=== PATIENT | male | born 1960 | race Caucasian/White ===

== ENCOUNTER → 2017-08-15 | Outpatient (CLI) | payer MEDICAID, SELFPAY | PROVIDERS: PCP Family Medicine; Visit Provider Family Medicine | DX: M51.9 Unspecified thoracic, thoracolumbar and lumbosacral intervertebral disc disorder (principal); M54.32 Sciatica, left side | CPT/HCPCS: 72148; 76376 ==

== ENCOUNTER 2017-09-12 15:22 | Emergency (ER) | payer MEDICAID, SELFPAY ==
[2017-09-12 15:24] VITALS: BP 161/95; PULSE 94; RESP 14; TEMP 37; O2SAT 98; BMI 50.1
[2017-09-12 16:09] LABS: Microscopic, Urine URINE MICROSCOPIC (MICROSCOPIC)
[2017-09-12 16:13] LABS: Appearance,Urine CLEAR (Clear); Bilirubin,Urine Negative (Negative); Blood, Urine SMALL (Negative); Color,Urine YELLOW (Yellow); Glucose,Urine (UA) Negative (Negative); Ketones,Urine Negative (Negative); Leukocyte Esterase,Urine Negative (Negative); Nitrate,Urine Negative (Negative); Protein,Urine Negative (Negative); Urobilinogen,Urine 0.2 EU/dl (0.2)
--- NOTE | 2017-09-12 16:24 | CT_ITS ---
CT abdomen pelvis wo con CLINICAL INDICATION: ITS.REASON: LEFT FLANK PAIN ORDERING PHYSICIAN: Trung Diez MD PATIENT AGE: 56 years COMPARISON: 09-27-16 TECHNIQUE: Axial images obtained with sagittal and coronal reformats. PROCEDURE: Oral Contrast: None IV Contrast: None . FINDINGS: Images are obtained from the mid upper chest through the abdomen and pelvis. There are several noncalcified pulmonary nodules including a 4 mm nodule right upper lobe, 2 mm nodule right upper lobe, 4 mm nodule right upper lobe inferiorly, 4 mm nodule in the fissural region, 5 mm nodule right lower lobe. There are small nodes in the right hilum. Diffuse fatty liver. No definite focal liver lesions. The gallbladder, spleen and adrenal glands are unremarkable. There is fatty infiltration of the pancreas. There is a 3 to 4 mm stone at the left ureterovesical junction causing mild left hydroureteronephrosis with minimal stranding of the left periureteral fat. A 9 mm stone is present in the lower pole the left kidney. Part of the left lateral abdominal wall is not included. No evidence of appendicitis, intestinal obstruction, or diverticulitis. IMPRESSION: 1. 3 to 4 mm left ureterovesical junction stone with mild obstructive uropathy 2. 9 mm stone in the lower pole left kidney. 3. Several noncalcified pulmonary nodules the largest at 5 mm. Consider 6 month follow-up of the chest
--- NOTE | 2017-09-12 16:24 | PC.NURSE ---
CT order had to be cancelled and re entered before radiology could see it.
[2017-09-12 16:31] LABS: Basophils # 0.1 K/mm3 (0-0.2); Basophils % 0.5 % (0.1-2.0); Eosinophils # 0.2 K/mm3 (0.0-0.4); Eosinophils % 1.2 % (0.1-12.0); Hematocrit 46.4 % (42.0-52.0); Hemoglobin 15.3 g/dL (14.1-18.0); Lymphocytes # 1.7 K/mm3 (0.7-4.5); Lymphocytes % 13.4 K/mm3 (10-50); Mean Corpuscular Hemoglobin 29.5 pg (27.0-31.2); Mean Corpuscular Volume 89.4 fl (80-94); Mean Platelet Volume 6.8 fl (7.4-10.4); Monocytes # 0.7 K/mm3 (0.1-1.0); Monocytes % 5.1 % (1.7-9.3); Neutrophils # 10.1 K/mm3 (1.8-7.8); Neutrophils % 79.8 % (37.0-80.0); Platelet Count 337 K/mm3 (142-424); Red Blood Count 5.19 M/mm3 (4.60-6.20); Red Cell Distribution Width 13.3 % (11.5-17.5); White Blood Count 12.6 K/mm3 (4.8-10.8)
[2017-09-12 16:45] LABS: Alanine Aminotransferase 35 U/L (12-78); Albumin Level 3.7 gm/dL (3.4-5.0); Albumin/Globulin Ratio 0.9 (1.1-1.8); Alkaline Phosphatase 64 U/L (46-116); Anion Gap 13.6 mEq/L (5-15); Aspartate Amino Transferase 18 U/L (15-37); Bilirubin,Total 0.5 mg/dL (0.2-1.0); Blood Urea Nitrogen 17 mg/dL (7-18); Calcium 9.2 mg/dL (8.5-10.1); Carbon Dioxide 26 mmol/L (21.0-32.0); Chloride 99 mmol/L (98-107); Creatinine Clearance Estimated 105 mL/min (0-300); Creatinine,Serum 0.76 mg/dL (0.70-1.30); Estimated Glomerular Filt Rate 106 ml/min (>60); GFR (African American) 128 ML/MIN (>60); Globulin 4.2 gm/dl (1.3-3.2); Glucose 134 mg/dL (74-106); Potassium 3.6 mmoL/L (3.5-5.1); Sodium 135 mmol/L (136-145); Total Protein,Serum 7.9 gm/dL (6.4-8.2)
[2017-09-12 16:55] LABS: Mucus,Urine 1+ /lpf
--- NOTE | 2017-09-12 17:45 | HMH.EDGENADL ---
ED Disposition Clinical Impression: Calculus of left kidney, Lung nodule seen on imaging study Hematuria Qualifiers: Hematuria type: unspecified type Qualified Code(s): R31.9 - Hematuria, unspecified Disposition: Home, Self-Care Condition on Discharge: Good Instructions: Kidney Stones -- Adult Additional Instructions: Follow-up with Dr. Garcia regarding your kidney stone, also follow-up with your PCP regarding your lung nodule in order to arrange for a follow-up CT scan of your chest within 6 months in order to rule out a possible lung malignancy. Appeal of CT scan given to you in the emergency room today. Prescriptions: Etodolac [Lodine 400mg Tab] 400 mg PO BID PRN #14 tab PRN Reason: Moderate Pain Referrals: John Sotelo MD [Primary Care Provider] - Time of Disposition: 17:48 - Critical Care Critical Care Time: No Attestation: On 09/12/17, the high probability of a clinically significant, sudden or life threatening deterioration of the following system(s) required my full and direct attention, intervention and personal management. The time I documented below is in addition to time spent performing reported procedures but includes the following listed in this critical care notation. Medical Decision Making - Medical Records Medical records reviewed: Yes: I reviewed the patient's medical records. Vital Signs: 09/12/17 15:24 09/12/17 17:57 Temperature 98.6 F 98.6 F Temperature Source Oral Oral Pulse Rate 90 Pulse Rate [Right Brachial] 94 H Respiratory Rate 14 16 Blood Pressure 189/100 Blood Pressure [Right Arm] 161/95 Blood Pressure Mean [Right Arm] 117 Blood Pressure Source Automatic Cuff Blood Pressure Source [Right Arm] Automatic Cuff Blood Pressure Position Sitting Blood Pressure Position [Right Arm] Sitting 02 Sat by Pulse Oximetry 98 Oxygen Delivery Method Room Air Room Air - Lab Data Lab results reviewed: Yes: I reviewed the patient's lab results. Lab Results 09/12/17 16:00: Urine Color Yellow, Urine Appearance Clear, Urine pH 6.0, Ur Specific [place] 1.020, Urine Protein Negative, Urine Glucose (UA) Negative, Urine Ketones Negative, Urine Blood Small, Urine Nitrate Negative, Urine Bilirubin Negative, Urine Urobilinogen 0.2, Ur Leukocyte Esterase Negative, Urine RBC 5-10, Urine WBC None, Ur Squamous Epith Cells None, Urine Bacteria None, Urine Mucus 1+ 09/12/17 16:20: WBC 12.6 H, RBC 5.19, Hgb 15.3, Hct 46.4, MCV 89.4, MCH 29.5, MCHC 33.0, RDW 13.3, Plt Count 337, MPV 6.8 L, Neut % (Auto) 79.8, Lymph % (Auto) 13.4, [place] % (Auto) 5.1, Eos % (Auto) 1.2, Baso % (Auto) 0.5, Neut # (Auto) 10.1 H, Lymph # (Auto) 1.7, [place] # (Auto) 0.7, Eos # (Auto) 0.2, Baso # (Auto) 0.1 09/12/17 16:20: Sodium 135 L, Potassium 3.6, Chloride 99, Carbon Dioxide 26, Anion Gap 13.6, BUN 17, Creatinine 0.76, Estimated Creat Clear 105, Estimated GFR 106, Est GFR ( Amer) 128, Glucose 134 H, Calcium 9.2, Total Bilirubin 0.5, AST 18, ALT 35, Alkaline Phosphatase 64, Total Protein 7.9, Albumin 3.7, Globulin 4.2 H, Albumin/Globulin Ratio 0.9 L Result diagrams: 09/12/17 16:20 09/12/17 16:20 Orders (Tests/Meds): ED MEDICATIONS Discontinued Medications Generic Name Dose Route Start Last Admin Trade Name Freq PRN Reason Stop Dose Admin Ketorolac Tromethamine 30 mg 09/12/17 15:41 09/12/17 17:59 Toradol 30mg/Ml Vial IV 09/12/17 15:42 Not Given ONCE ONE Ondansetron HCl 4 mg 09/12/17 15:41 09/12/17 17:59 Zofran 4mg/2ml Vial IV 09/12/17 15:42 Not Given ONCE ONE ORDERS Category Date Time Status CT abdomen/pelvis request [CT Request abd/pelvis] Exams 09/12/17 16:23 Ordered Stat - CT Data CT Scan: Abdomen, Pelvis Time Received: 17:[address] Reviewed: Yes: I have viewed the radiologist's interpretation Findings Narrative: left UVJ with mild hydronephrosis / stone, - Rafael Inquiry Pt receiving controlled substance: No - Reevaluation(s) Time: 17:3
--- NOTE | 2017-09-12 17:49 | ED_ITS ---
ED Disposition Clinical Impression: Calculus of left kidney, Lung nodule seen on imaging study Hematuria Qualifiers: Hematuria type: unspecified type Qualified Code(s): R31.9 - Hematuria, unspecified Disposition: Home, Self-Care Condition on Discharge: Good Instructions: Kidney Stones -- Adult Additional Instructions: Follow-up with Dr. Garcia regarding your kidney stone, also follow-up with your PCP regarding your lung nodule in order to arrange for a follow-up CT scan of your chest within 6 months in order to rule out a possible lung malignancy. Appeal of CT scan given to you in the emergency room today. Prescriptions: Etodolac [Lodine 400mg Tab] 400 mg PO BID PRN #14 tab PRN Reason: Moderate Pain Referrals: John Sotelo MD [Primary Care Provider] - Time of Disposition: 17:48 - Critical Care Critical Care Time: No Attestation: On 09/12/17, the high probability of a clinically significant, sudden or life threatening deterioration of the following system(s) required my full and direct attention, intervention and personal management. The time I documented below is in addition to time spent performing reported procedures but includes the following listed in this critical care notation. Medical Decision Making - Medical Records Medical records reviewed: Yes: I reviewed the patient's medical records. Vital Signs: 09/12/17 15:24 09/12/17 17:57 Temperature 98.6 F 98.6 F Temperature Source Oral Oral Pulse Rate 90 Pulse Rate [Right Brachial] 94 H Respiratory Rate 14 16 Blood Pressure 189/100 Blood Pressure [Right Arm] 161/95 Blood Pressure Mean [Right Arm] 117 Blood Pressure Source Automatic Cuff Blood Pressure Source [Right Arm] Automatic Cuff Blood Pressure Position Sitting Blood Pressure Position [Right Arm] Sitting 02 Sat by Pulse Oximetry 98 Oxygen Delivery Method Room Air Room Air - Lab Data Lab results reviewed: Yes: I reviewed the patient's lab results. Lab Results 09/12/17 16:00: Urine Color Yellow, Urine Appearance Clear, Urine pH 6.0, Ur Specific [place] 1.020, Urine Protein Negative, Urine Glucose (UA) Negative, Urine Ketones Negative, Urine Blood Small, Urine Nitrate Negative, Urine Bilirubin Negative, Urine Urobilinogen 0.2, Ur Leukocyte Esterase Negative, Urine RBC 5-10, Urine WBC None, Ur Squamous Epith Cells None, Urine Bacteria None, Urine Mucus 1+ 09/12/17 16:20: WBC 12.6 H, RBC 5.19, Hgb 15.3, Hct 46.4, MCV 89.4, MCH 29.5, MCHC 33.0, RDW 13.3, Plt Count 337, MPV 6.8 L, Neut % (Auto) 79.8, Lymph % (Auto ) 13.4, [place] % (Auto) 5.1, Eos % (Auto) 1.2, Baso % (Auto) 0.5, Neut # (Auto) 10.1 H, Lymph # (Auto) 1.7, [place] # (Auto) 0.7, Eos # (Auto) 0.2, Baso # (Auto) 0.1 09/12/17 16:20: Sodium 135 L, Potassium 3.6, Chloride 99, Carbon Dioxide 26, Anion Gap 13.6, BUN 17, Creatinine 0.76, Estimated Creat Clear 105, Estimated GFR 106, Est GFR ( Amer) 128, Glucose 134 H, Calcium 9.2, Total Bilirubin 0.5, AST 18, ALT 35, Alkaline Phosphatase 64, Total Protein 7.9, Albumin 3.7, Globulin 4.2 H, Albumin/Globulin Ratio 0.9 L Result diagrams: 09/12/17 16:20 09/12/17 16:20 Orders (Tests/Meds): ED MEDICATIONS Discontinued Medications Generic Name Dose Route Start Last Admin Trade Name Freq PRN Reason Stop Dose Admin Ketorolac Tromethamine 30 mg 09/12/17 15:41 09/12/17 17:59 Toradol 30mg/Ml Vial IV 09/12/17 15:42 Not Given ONC
[2017-09-12 17:57] VITALS: BP 189/100; PULSE 90; RESP 16; TEMP 37; O2SAT 97
== END 2017-09-12 18:00 | disposition home or self-care (01) ==
PROVIDERS: Emergency Provider Emergency Medicine; Family Provider Family Medicine; PCP Family Medicine
DX: N20.0 Calculus of kidney (principal); R91.1 Solitary pulmonary nodule; R31.9 Hematuria, unspecified; Z87.442 Personal history of urinary calculi; Z79.899 Other long term (current) drug therapy
CPT/HCPCS: 74176; 80053; 81001; 85025; 99283

== ENCOUNTER → 2018-11-14 10:30 | Outpatient (CLI) | payer MEDICAID, SELFPAY ==
--- NOTE | 2018-11-14 10:34 | CI_ITS ---
Cerebrovascular Exam Indications: 780.4 Dizziness and giddiness. IMPRESSIONS 1. The bilateral vertebral arteries are patent with normal antegrade flow. 2. Study suggests 20-49% stenosis involving the right internal carotid artery and the left internal carotid artery, lower end of scale. Carotid duplex study. Complete study and Doppler flow study including spectral analysis, color and roland scale imaging. Height: Height: 172.7cm. Height: 68in. Weight: Weight: 152.4kg. Weight: 335.3lb. Body mass index: BMI: 51.1kg/m^2. Body surface area: BSA: 2.79m^2. Location: Vascular laboratory. Patient status: Outpatient. Tables: Arterial flow: + +--------+--------+ Location V sys V ed + +--------+--------+ Right CCA - proximal 99cm/s 22cm/s + +--------+--------+ Right CCA - distal 83.3cm/s 15.7cm/s + +--------+--------+ Right ECA 125cm/s -------- + +--------+--------+ Right ICA - proximal 86.4cm/s 18.1cm/s + +--------+--------+ Right ICA - mid 87.2cm/s 24.4cm/s + +--------+--------+ Right ICA - distal 70.7cm/s 22cm/s + +--------+--------+ Right vertebral 28.2cm/s -------- + +--------+--------+ Left CCA - proximal 87.7cm/s 14.9cm/s + +--------+--------+ Left CCA - distal 85.5cm/s 19.9cm/s + +--------+--------+ Left ECA 118cm/s -------- + +--------+--------+ Left ICA - proximal 99.7cm/s 27cm/s + +--------+--------+ Left ICA - mid 98.2cm/s 32.4cm/s + +--------+--------+ Left ICA - distal 107cm/s 32.9cm/s + +--------+--------+ Left vertebral 30.4cm/s -------- + +--------+--------+ Velocity ratios: + + + + + + Right, V sys Right, V ed Left, V sys Left, V ed + + + + + + Max ICA/dist CCA 1.05 1.55 1.25 1.65 + + + + + + (Report amended ) Electronically signed by: Gonzalez Castañeda [id number]
== END ==
PROVIDERS: PCP Family Medicine; Visit Provider Family Medicine
DX: R42 Dizziness and giddiness (principal)
CPT/HCPCS: 93880

== ENCOUNTER → 2018-12-09 08:43 | Outpatient (POV) | payer MEDICAID, SELFPAY | PROVIDERS: Visit Provider Otolaryngology | DX: Z00.00 Encounter for general adult medical examination without abnormal findings (principal) ==

== ENCOUNTER → 2019-03-09 10:26 | Outpatient (CLI) | payer MEDICAID, SELFPAY ==
--- NOTE | 2019-03-09 10:39 | MR_ITS ---
MR head/brain wo con HISTORY: Dizziness, weakness, ringing in ears ITS.REASON: DIZZINESS, TRAUMATIC INJURY OF HEAD ORDERING PHYSICIAN: John Sotelo MD PATIENT AGE: 58 years Comparison: None TECHNIQUE: Standard multiplanar multiecho sequences are performed without contrast. FINDINGS: No midline shift, mass effect, intracranial hemorrhage, or hydrocephalus is evident. There is mild generalized atrophy. There are periventricular and subcortical T2 white matter hyperintensities consistent with ischemic gliotic change from microvascular disease. No acute infarct evident. The cerebellopontine angles, cerebellum, and brainstem have an unremarkable appearance. There is a small area of increased FLAIR and T2 signal involving the medial aspect of the left petrous bone measuring 8 x 4 mm and may represent a small cholesterol granuloma as an incidental finding. The pituitary, optic chiasm, corpus callosum, and craniocervical junction have an unremarkable appearance. No mastoid effusion or sinus air-fluid level. IMPRESSION: 1. No acute intracranial finding. 2. Atrophy with mild periventricular ischemic gliotic change. 3. Suspect a small cholesterol granuloma as an incidental finding in the left petrous bone
== END ==
PROVIDERS: PCP Family Medicine; Visit Provider Family Medicine
DX: R42 Dizziness and giddiness (principal); S09.90XA Unspecified injury of head, initial encounter
CPT/HCPCS: 70551

== ENCOUNTER → 2019-08-18 09:58 | Outpatient (CLI) | payer MEDICARE, OTHER, SELFPAY ==
--- NOTE | 2019-08-18 10:06 | XR_ITS ---
PROCEDURE: XR FOOT LT MIN 3V CLINICAL INDICATION: LT FOOT PAIN COMPARISON: FTL3 FOOT-LT-3 VIEWS from 12/21/2014 FTL3 FOOT-LT-3 VIEWS from 01/25/2015 FINDINGS: No fracture or dislocation. No lytic or blastic change. There is normal mineralization. The joint spaces are well-preserved. No significant degenerative/arthritic changes. No erosive changes evident. Other findings:None. IMPRESSION: No acute findings. Dictated by: Jalil Reyes 08/18/2019 12:52 Electronically signed by Jalil Reyes in [place] 08/18/2019 12:52
== END ==
PROVIDERS: PCP Family Medicine; Visit Provider Family Medicine
DX: M79.672 Pain in left foot (principal)
CPT/HCPCS: 73630

== ENCOUNTER → 2020-04-26 12:57 | Outpatient (CLI) | payer MEDICARE, MEDICAID, SELFPAY | PROVIDERS: PCP Family Medicine; Visit Provider Family Medicine | DX: G47.33 Obstructive sleep apnea (adult) (pediatric) (principal); I10 Essential (primary) hypertension ==

== ENCOUNTER → 2020-05-31 08:15 | Outpatient (CLI) | payer MEDICARE, MEDICAID, SELFPAY ==
[2020-05-31 09:39] LABS: Coronavirus 19 IgG Antibody Negative (Negative); Coronavirus 19 IgM Antibody Negative (Negative)
== END ==
PROVIDERS: Visit Provider Family Medicine
DX: Z01.89 Encounter for other specified special examinations (principal); G47.33 Obstructive sleep apnea (adult) (pediatric); I10 Essential (primary) hypertension
CPT/HCPCS: 36415; 86328

== ENCOUNTER → 2020-06-01 20:02 | Outpatient (CLI) | payer MEDICARE, MEDICAID, SELFPAY | PROVIDERS: PCP Family Medicine; Visit Provider Family Medicine | DX: Z01.89 Encounter for other specified special examinations (principal); G47.33 Obstructive sleep apnea (adult) (pediatric); I10 Essential (primary) hypertension | CPT/HCPCS: 95811 ==

== ENCOUNTER 2020-08-11 10:59 | Emergency (ER) | payer MEDICARE, MEDICAID, SELFPAY ==
[2020-08-11 11:57] VITALS: BP 161/91; PULSE 83; RESP 19; TEMP 36.9; O2SAT 98; BMI 47.3
--- NOTE | 2020-08-11 12:07 | HMH.EDUTC ---
[place] Disposition Clinical Impression: Hematuria Qualifiers: Hematuria type: unspecified type Qualified Code(s): R31.9 - Hematuria, unspecified Disposition: Home, Self-Care Condition on Discharge: Good Instructions: Kidney Stones -- Adult, DI for Hematuria Additional Instructions: Go straight to Dr Weber office after leaving the [facility] FOllow up as needed Straight to ER If any worsening of pain Referrals: John Sotelo MD [Primary Care Provider] - As needed Floyd Sigala MD [Staff Physician] - As needed (Go straight to Dr Weber office) Time of Disposition: 13:14 Medical Decision Making - Rafael Inquiry Pt receiving controlled substance: No Rafael was queried for this patient: No Vital Signs: 08/11/20 11:57 08/11/20 13:14 Temperature 98.4 F 98.4 F Temperature Source Oral Pulse Rate 83 Pulse Rate [Left Brachial] 83 Respiratory Rate 19 19 Blood Pressure 161/91 H Blood Pressure [Left Arm] 161/91 H Blood Pressure Mean [Left Arm] 114 Blood Pressure Source [Left Arm] Automatic Cuff Blood Pressure Position [Left Arm] Sitting 02 Sat by Pulse Oximetry 98 Oxygen Delivery Method Room Air - Lab Data Lab results reviewed: Yes: I reviewed the patient's lab results. Lab Results 08/11/20 11:59: Urine Color Dark yellow, Urine Appearance Clear, Urine pH 5.5, Ur Specific [place] 1.025, Urine Protein 1+, Urine Glucose (UA) Negative, Urine Ketones Trace, Urine Blood 3+, Urine Nitrate Negative, Urine Bilirubin 1+ A, Urine Urobilinogen 1, Ur Leukocyte Esterase Trace 08/11/20 12:40: BUN 21 H, Creatinine 1.40 H, Estimated Creat Clear 59, Estimated GFR 52 L, Est GFR ( Amer) 63 Result diagrams: 08/11/20 12:40 Orders (Tests/Meds): ORDERS Category Date Time Status Urine Culture Stat Micro 08/11/20 12:00 Received - Physician Consults Physician Consulted: Zakiya Time: 13:10 Reason -: Urology Eval/Care Comment/Response: Spoke with Urology Clinic and informed them of patient complaints and lab findings and they advised to have patient come straight to the office for further evaluation and examination Medical Decision Narrative: Spoke with Dr Singletary about this patient for possible transfer to the ED She advised to get BUN/Creatine and since patient has had previous CT and history of stones if labs are ok Give injection of Torodol and dc home to follow up with Urology Patient refused Torodol injection for pain Spoke with Dr Weber office and informed them of lab findings and they advised to DC patient from the [facility] and have him come straight to the Clinic for further treatment and evaluation Patient verbalized understanding [place] HPI - General Stated complaint: left side and back pain Time Seen by Provider: 08/11/20 12:09 Mode of Arrival: Ambulatory Source of Information: Patient Limitations: No Limitations Description of Symptoms (Recalled from Triage Doc. by RN): PATIENT C/O BACK PAIN SINCE SATURDAY; HE BELIEVES HE HAS A KIDNEY STONE HEENT Symptoms (Recalled from RN notes): No Resp Symptoms (Recalled from RN notes): No Skin Symptoms (Recalled from RN notes): No MS Symptoms (Recalled from RN notes): Yes Functional Status (Recalled from RN notes): WNL - History of Present Illness Provider Complaint: Patient state that he has been having left flank pain on and off since Saturday States that he has a history of kidney stones and thinks he may be having one States that he has been having pain in flank area and at times will take his breath State that pain has continued to get worse and now is moving around his side and notice he had some blood in his urine State that he took some Motrin and it helped with pain - Related Data Home Medications Medication Instructions Recorded Confirmed benazepril 20 mg tablet 20 mg PO DAILY tab 11/05/17 08/11/20 clonazepam 0.5 mg tablet 0.5 mg PO QHS 11/05/17 08/11/20 hydrochlorothiazide 25 mg tablet 12.5 mg PO QAM 11/05/17 08/11/20 imipramine HCl 50 mg tablet 50 mg PO QHS tab
[2020-08-11 12:17] LABS: Apearance,Urine Clear (Clear); Color,Urine Dark Yellow (Yellow); PH,Urine 5.5 (5.0-8.5); Protein,Urine 1+ (Negative); Specific Gravity, Urine 1.025 (1.005-1.030)
[2020-08-11 12:18] LABS: Blood, Urine 3+ (Negative); Glucose,Urine (UA) Negative (Negative); Ketones,Urine TRACE (Negative)
[2020-08-11 12:19] LABS: Bilirubin,Urine 1+ (Negative); UTC Leukocyte Esterase,Urine Trace (Negative); UTC Nitrate,Urine Negative (Negative); Urobilinogen,Urine 1 EU/dl (0.2)
[2020-08-11 12:57] LABS: Blood Urea Nitrogen 21 mg/dl (9-20); Creatinine Clearance Estimated 59 mL/min (50-200); Estimated Glomerular Filt Rate 52 ml/min (>60); GFR (African American) 63 ML/MIN (>60)
[2020-08-11 13:14] VITALS: BP 161/91; PULSE 83; RESP 19; TEMP 36.9; O2SAT 98
== END 2020-08-11 13:15 | disposition home or self-care (01) ==
PROVIDERS: Emergency Provider Nurse Practitioner; PCP Family Medicine
DX: R31.9 Hematuria, unspecified (principal); Z87.442 Personal history of urinary calculi; M54.5 Low back pain; I10 Essential (primary) hypertension; E78.5 Hyperlipidemia, unspecified; Z88.2 Allergy status to sulfonamides
CPT/HCPCS: G0463; 74018; 81003; 82565; 84520; 87086; 99202

== ENCOUNTER → 2020-08-11 13:41 | Outpatient (CLI) | payer MEDICARE, MEDICAID, SELFPAY ==
--- NOTE | 2020-08-11 13:45 | XR_ITS ---
PROCEDURE: XR KUB CLINICAL INDICATION: kidney stones COMPARISON: CT ABDPELWO CT abdomen pelvis wo con from 09/12/2017 FINDINGS: A 4 mm stone is present in the lower pole of the left kidney. Calcifications are also present in the pelvis and could represent distal ureteral calculi. IMPRESSION: Left nephrolithiasis with possible ureterolithiasis. Calcific densities are present along the pelvic region on the left measuring to 7 mm possibly related to ureteral calculi. Dictated by: Gonzalez Castañeda MD 08/11/2020 14:03 Gonzalez Castañeda MD in [place] 08/11/2020 14:03
== END ==
PROVIDERS: PCP Family Medicine; Visit Provider Urology
DX: N20.0 Calculus of kidney (principal)
CPT/HCPCS: 74018; 81003; 82565; 84520; 87086

== ENCOUNTER → 2020-12-06 09:23 | Outpatient (CLI) | payer MEDICARE, MEDICAID, SELFPAY | PROVIDERS: PCP Family Medicine; Visit Provider Family Medicine | DX: R00.2 Palpitations (principal) | CPT/HCPCS: 93225; 93226 ==

== ENCOUNTER → 2021-05-19 09:53 | Outpatient (CLI) | payer MEDICARE, MEDICAID, SELFPAY | PROVIDERS: Visit Provider Internal Medicine Gastroenterology | DX: Z01.812 Encounter for preprocedural laboratory examination (principal); Z11.52 Encounter for screening for COVID-19; Z13.810 Encounter for screening for upper gastrointestinal disorder | CPT/HCPCS: C9803; U0003; U0005 ==

== ENCOUNTER 2021-09-08 11:15 | Emergency (ER) | payer MEDICARE, MEDICAID, SELFPAY ==
[2021-09-08 12:39] VITALS: BP 175/83; PULSE 82; RESP 18; TEMP 37.1; O2SAT 98; BMI 46.0
[2021-09-08 12:43] LABS: UTC Strep Screen (Rapid) Positive (Negative)
[2021-09-08 12:44] LABS: UTC Influenza A Antigen Negative (Negative); UTC Influenza B Antigen Negative (Negative)
--- NOTE | 2021-09-08 13:09 | HMH.EDUTC ---
[facility] [place] Disposition Clinical Impression: Strep throat, COVID-19 Disposition: Home, Self-Care Condition on Discharge: Good Instructions: Strep Throat, DI for Sinusitis, DI for Strep Throat Additional Instructions: Drink plenty of fluids. Take tylenol or ibuprofen for pain or fever. Take the medications as directed. Follow up with your regular doctor. GO TO THE ER FOR ANY WORSENING SYMPTOMS Throw your tooth brush away and get a new one. Prescriptions: Amoxicillin/Potassium Clav [Augmentin 875-125 Tablet] 1 tab PO Q12H 10 Days #20 tab Transmission Status: Received by [facility] guaiFENesin [Mucinex 600mg tablet] 1 - 2 tab PO BIDP PRN #30 tab PRN Reason: Congestion Transmission Status: Received by [facility] Referrals: John Sotelo MD [Primary Care Provider] - Time of Disposition: 13:27 Medical Decision Making - Medical Records Medical records reviewed: No: I reviewed the patient's medical records. - Rafael Inquiry Pt receiving controlled substance: No Vital Signs: 09/08/21 12:39 09/08/21 13:31 Temperature 98.8 F 98.8 F Temperature Source Oral Pulse Rate 82 Pulse Rate [Left] 82 Respiratory Rate 18 18 Blood Pressure 175/83 H Blood Pressure [Right Arm] 175/83 H Blood Pressure Mean [Right Arm] 113 02 Sat by Pulse Oximetry 98 - Lab Data Lab results reviewed: Yes: I reviewed the patient's lab results. Lab Results 09/08/21 12:42: Influenza Type A Ag Negative, Influenza Type B Ag Negative 09/08/21 12:42: Strep Scn Rapid Clinic Positive A [facility] HPI - General Stated complaint: possible sinus infection Time Seen by Provider: 09/08/21 13:00 Mode of Arrival: Ambulatory Source of Information: Patient Limitations: No Limitations Description of Symptoms (Recalled from Triage Doc. by RN): pt c/o sinus pressure/drainage and a productive cough with clear-yellow sputum. HEENT Symptoms (Recalled from RN notes): Yes (sinus pressure/drainage) Resp Symptoms (Recalled from RN notes): Yes (productive cough with clear-yellow sputum) Skin Symptoms (Recalled from RN notes): No MS Symptoms (Recalled from RN notes): No Functional Status (Recalled from RN notes): wnl - History of Present Illness Provider Complaint: He states that he has had a sore throat and sinus congestion for the past 4 days. He denies fever/chills. He denies shortness of breath or chest congestion. - Related Data Home Medications Medication Instructions Recorded Confirmed benazepril 20 mg tablet 20 mg PO BID tab 11/05/17 05/18/21 clonazepam 0.5 mg tablet 0.5 mg PO QHS 11/05/17 05/18/21 imipramine HCl 50 mg tablet 50 mg PO QHS tab 11/05/17 05/18/21 Amlodipine Besylate [Amlodipine 5 mg PO DAILY 12/02/17 05/18/21 10mg Tab] Simvastatin [Zocor 40mg] 40 mg PO HS 08/11/20 05/18/21 Flecainide Acetate 100 mg PO BID 03/13/21 05/18/21 hydroCHLOROthiazide 12.5 mg PO DAILY 05/18/21 05/18/21 [Hydrochlorothiazide 12.5mg Tab] Previous Rx's Medication Instructions Recorded Amoxicillin/Potassium Clav 1 tab PO Q12H 10 Days #20 tab 09/08/21 [Augmentin 875-125 Tablet] guaiFENesin [Mucinex 600mg tablet] 1 - 2 tab PO BIDP PRN #30 tab 09/08/21 Allergies Allergy/AdvReac Type Severity Reaction Status Date / Time Sulfa (Sulfonamide Allergy Intermediate I-HIVES Verified 03/13/21 10:02 Antibiotics) ciprofloxacin [From Cipro] Allergy Unknown Verified 05/18/21 13:24 metaxalone Allergy Unknown Verified 03/13/21 10:02 - Worker's Comp Is this a Worker's Comp case?: No [facility] History - Hepatitis A Screen Drug use history?: No High risk sexual behaviors?: No History of sexually transmitted infection?: No Currently employed?: No Childcare worker?: No Do you have indoor plumbing?: Yes Do you have electricity?: Yes Attestation statement:: This patient has been screened for Hepatitis A risk factors. I have reviewed the patient's past medical history: Yes Medical History: Reports:: [place]
[2021-09-08 13:31] VITALS: BP 175/83; PULSE 82; RESP 18; TEMP 37.1
== END 2021-09-08 13:39 | disposition home or self-care (01) ==
LOC: UTC 11:17
PROVIDERS: Emergency Provider Nurse Practitioner Family; PCP Family Medicine
DX: J02.0 Streptococcal pharyngitis (principal); U07.1 COVID-19; F17.210 Nicotine dependence, cigarettes, uncomplicated; I10 Essential (primary) hypertension; Z88.2 Allergy status to sulfonamides
CPT/HCPCS: G0463; 87804; 87880; 99203; C9803; U0003; U0005

== ENCOUNTER → 2022-03-27 12:53 | Outpatient (CLI) | payer MEDICARE, MEDICAID, SELFPAY ==
--- NOTE | 2022-03-27 12:58 | XR_ITS ---
FINAL REPORT CLINICAL HISTORY: EDEMA FINDINGS: Two views of the chest were obtained. The heart size and pulmonary vascularity are within normal limits. The mediastinum is normal. No acute pulmonary abnormality is identified. There is no pneumothorax. The bony thorax is intact. IMPRESSION: No active cardiopulmonary disease. Reviewed, Interpreted and Dictated by Carmelo Lange III, MD Transcribed by Brian Parks Authenticated and [facility]
== END ==
PROVIDERS: PCP Family Medicine; Visit Provider Family Medicine
DX: R60.9 Edema, unspecified (principal)
CPT/HCPCS: 71046

== ENCOUNTER → 2022-05-21 11:06 | Outpatient (CLI) | payer MEDICARE, MEDICAID, SELFPAY ==
--- NOTE | 2022-05-21 11:10 | MR_ITS ---
FINAL REPORT TECHNIQUE: Multiplanar MR without gadolinium enhancement CLINICAL HISTORY: ACUTE RIGHT-SIDED LOW BACK PAIN. LOW BACK PAIN. RIGHT LEG PAIN. PAINFUL TO WALK. SYMPTOMS X2WKS. NO INJURY OR TRAUMA. COMPARISON: August 15, 2017 FINDINGS: MRI LUMBAR SPINE W/O CONTRAST Sagittal images show normal vertebral height. There is no malalignment. There is a mild compression fracture of T12. Marrow signal pattern is unremarkable. L1-2: No canal stenosis or neural foraminal narrowing. L2-3: There is a mild annular disc bulge asymmetric to the right, stable from the prior exam. L3-4: No canal stenosis or neural foraminal narrowing. L4-5: There is a minimal annular disc bulge with mild facet arthropathy. L5-S1: No canal stenosis or neural foraminal narrowing. IMPRESSION: Stable mild degenerative changes. Reviewed, Interpreted and Dictated by Keith Luna MD Transcribed by Grazyna Joe Authenticated and [facility]
== END ==
PROVIDERS: PCP Family Medicine; Visit Provider Nurse Practitioner Family
DX: M54.41 Lumbago with sciatica, right side (principal); M51.36 Other intervertebral disc degeneration, lumbar region
CPT/HCPCS: 72148; 76376

== ENCOUNTER → 2022-05-30 09:27 | Outpatient (CLI) | payer MEDICARE, MEDICAID, SELFPAY ==
--- NOTE | 2022-05-30 | XR_ITS ---
FINAL REPORT CLINICAL HISTORY: rt hip pain low back pain FINDINGS: Right hip with pelvis. There is no acute fracture or dislocation. There are mild degenerative changes. There is mild vascular calcification. IMPRESSION: Mild degenerative change. Reviewed, Interpreted and Dictated by Carmelo Lange III, MD Transcribed by Brian Parks Authenticated and [facility]
== END ==
PROVIDERS: PCP Family Medicine; Visit Provider Family Medicine
DX: M54.41 Lumbago with sciatica, right side (principal)
CPT/HCPCS: 73502

== ENCOUNTER → 2023-02-22 08:01 | Outpatient (CLI) | payer MEDICARE, MEDICAID, SELFPAY ==
--- NOTE | 2023-02-22 08:06 | XR_ITS ---
FINAL REPORT CLINICAL HISTORY: NECK PAIN FINDINGS: CERVICAL SPINE Five views demonstrate no acute fracture. There is mild degenerative change. There is mild left C5-6 neuroforaminal narrowing. There is no malalignment. IMPRESSION: Mild degenerative change. Reviewed, Interpreted and Dictated by Carmelo Lange III, MD Transcribed by Breezy Álvarez Authenticated and [facility]
== END ==
PROVIDERS: PCP Family Medicine; Visit Provider Family Medicine
DX: M54.2 Cervicalgia (principal)
CPT/HCPCS: 72050